=== PATIENT | female | born 1955 | race American Indian/Alaskan Native ===

== ENCOUNTER 2017-01-04 13:33 | Emergency (ER) | payer MEDICARE ==
[2017-01-04 14:49] LABS: Basophils % (Auto) 0.6 % (0.0-1.8); Eosinophils % (Auto) 1.5 % (0.0-4.3); Hematocrit 41.7 % (30.3-42.9); Hemoglobin 13.8 gm/dl (10.1-14.3); Mean Corpuscular HGB Conc 33 % (30-34); Mean Corpuscular Hemoglobin 29 pg (28-32); Mean Corpuscular Volume 86 fl (79-97); Platelet Count 358 K/mm3 (140-440); Red Blood Count 4.84 M/mm3 (3.65-5.03); Red Cell Distribution Width 13.8 % (13.2-15.2); White Blood Count 7.3 K/mm3 (4.5-11.0)
--- NOTE | 2017-01-04 14:56 | Emergency Department Report ---
HPI - General Chief Complaint: Abdominal Pain Time Seen by Provider: 01/04/17 14:43 - HPI HPI: Chief complaint: Abdominal pain, generalized weakness and dizziness. HPI: Patient is a 61-year-old female with a lifelong history of anxiety and episodic migraines presents today with acute onset of lower abdominal pain. Patient states she went and sat on the toilet and felt like she was given a pass out so she had her daughter bring her pillow and she lay on the floor. Patient states she had a bowel movement and then vomited and is now back to normal. Patient states she's no longer in pain. Patient states that on a pretty regular basis her legs give out on her and has been that way since she was 24. Patient has been worked up in the past for possible strokes and it was decided according to her that these were anxiety attacks. Patient did not pass out and nothing that she has now is new. No melena no hematuria Mode of arrival: [EMS] Source: [Patient] Began: Prior to admission Duration: See above Context: See above Quality: Sharp that has resolved Severity: 0 out of 10 Improved with: Nothing Worsened with: Nothing Associated signs and symptoms: See above ED Past Medical Hx - Past Medical History Previous Medical History?: Yes Hx Psychiatric Treatment: Yes (ANXIETY) Additional medical history: HYPOTHYROIDISM - Surgical History Past Surgical History?: Yes Additional Surgical History: hernia repair - Social History Smoking Status: Never Smoker Substance Use Type: None - Medications Home Medications: Home Medications Medication Instructions Recorded Confirmed Last Taken Type Ibuprofen [Motrin] 200 mg PO Q6H PRN 09/26/15 09/26/15 Unknown History LORazepam [Ativan] 1 mg PO Q12H PRN #7 tab 09/26/15 Unknown Rx amLODIPine [Norvasc] 5 mg PO DAILY #30 tab 09/26/15 Unknown Rx ED Review of Systems ROS: Stated complaint: ABD PAIN Other details as noted in HPI ROS Constitutional: No fever ENT: No uri symptoms Cardiovascular: No chest pain Respiratory: No sob or cough GI: No nausea vomiting or diarrhea : No dysuria frequency or urgency, Skin: No rash Neuro: No focal weakness or numbness Psych: No depression Juancarlos/lymph: No edema Physical Exam - Physical Exam Vital Signs: Vital Signs 01/04/17 13:48 Temperature 98.2 F Pulse Rate 68 Respiratory 12 Rate Blood Pressure 155/87 O2 Sat by Pulse 98 Oximetry Physical Exam: GENERAL: The patient is well-developed well-nourished . HEENT: Normocephalic. Atraumatic. Extraocular motions are intact. Patient has moist mucous membranes. NECK: Supple. No meningitic signs are noted. There is no adenopathy noted. CHEST/LUNGS: Clear to auscultation. There is no respiratory distress noted. HEART/CARDIOVASCULAR: Regular. There is no tachycardia. There is no gallop rub or murmur. ABDOMEN: Abdomen is soft, nontender. Patient has normal bowel sounds. There is no abdominal distention. SKIN: There is no rash. There is no edema. There is no diaphoresis. NEURO: The patient is awake, alert, and oriented. The patient is cooperative. The patient has no focal neurologic deficits. The patient has normal speech. MUSCULOSKELETAL: There is no tenderness or deformity. There is no limitation range of motion. There is no evidence of acute injury. ED Course Vital Signs 01/04/17 13:48 Temperature 98.2 F Pulse Rate 68 Respiratory 12 Rate Blood Pressure 155/87 O2 Sat by Pulse 98 Oximetry ED Medical Decision Making - Lab Data Result diagrams: 01/04/17 14:19 01/04/17 14:19 Laboratory Tests 01/04/17 01/04/17 14:19 14:19 Calcium 9.2 Troponin T < 0.010 Lipase 18 Urinalysis within normal limits. - EKG Data -: EKG Interpreted by De EKG shows normal: sinus rhythm Rate: normal (67) - EKG Data When compared to previous EKG there are: previous EKG unavailable Interpretation: LVH, other (left axis deviation) Critical care attestation.: If time is entered above; I have spent that time in minutes in the direct care of this critically ill patient, excluding procedure time. ED Disposition Clinical Impression: Generalized weakness, Resolved abdominal pain, Acute anxiety, Vasovagal episode Disposition: DISCHARGED TO HOME OR SELFCARE Is pt being admited?: No Does the pt Need Aspirin: No Instructions: Abdominal Pain (ED), Syncope (ED) Referrals: TAMI STINSON MD [Primary Care Provider] - 3-5 Days Time of Disposition: 16:40
[2017-01-04 15:16] LABS: Anion Gap 19 mmol/L; BUN/Creatinine Ratio 21.11; Blood Urea Nitrogen 19 mg/dL (7-17); Calcium 9.2 mg/dL (8.4-10.2); Carbon Dioxide 24 mmol/L (22-30); Chloride 102.5 mmol/L (98-107); Glucose 105 mg/dL (65-100); Sodium 141 mmol/L (137-145)
[2017-01-04 15:54] LABS: Bilirubin,Urine NEG (Negative); Blood,Urine NEG (Negative); Ketones,Urine NEG (Negative); Leukocyte Esterase,Urine NEG (Negative); Mucus,Urine FEW /HPF; Nitrite,Urine NEG (Negative); Protein,Urine <15 mg/dL mg/dL (Negative); Urobilinogen,Urine < 2.0 mg/dL (<2.0)
[2017-01-04 17:10] VITALS: BP 168/104
== END 2017-01-04 17:30 | disposition home or self-care (01) ==
LOC: ED 13:33
DX: R53.1 Weakness (principal); R41.9 Unspecified symptoms and signs involving cognitive functions and awareness; R55 Syncope and collapse; E03.9 Hypothyroidism, unspecified
CPT/HCPCS: 36415; 80048; 81001; 83690; 84484; 85025; 93005; 93010; 99284

== ENCOUNTER 2018-03-06 13:16 | Emergency (ER) | payer MEDICARE ==
[2018-03-06 13:30] VITALS: BP 149/109
[2018-03-06 14:01] LABS: Hematocrit 38.7 % (30.3-42.9); Mean Corpuscular HGB Conc 34 % (30-34); Mean Corpuscular Hemoglobin 29 pg (28-32); Mean Corpuscular Volume 86 fl (79-97); Platelet Count 362 K/mm3 (140-440); Red Blood Count 4.52 M/mm3 (3.65-5.03)
[2018-03-06 14:35] LABS: Alanine Aminotransferase 16 units/L (7-56); BUN/Creatinine Ratio 20; Blood Urea Nitrogen 16 mg/dL (7-17); Calcium 9.3 mg/dL (8.4-10.2); Hemolysis Index 3
== END 2018-03-06 21:00 | disposition left against medical advice (07) ==
LOC: ED 13:16
DX: F41.9 Anxiety disorder, unspecified (principal); Z88.0 Allergy status to penicillin; Z53.21 Procedure and treatment not carried out due to patient leaving prior to being seen by health care provider
CPT/HCPCS: 36415; 80053; 85027

== ENCOUNTER 2018-12-05 13:20 | Emergency (ER) | payer MEDICARE ==
[2018-12-05] MEDS ORDERED: NACL 0.9% 1000 ML 1,000 ML ONE (14:00)
[2018-12-05] MEDS ORDERED: NACL 0.9% 1000 ML 1,000 ML IV ONE (14:41)
--- NOTE | 2018-12-05 14:41 | Emergency Department Report ---
Blank Doc - Documentation Documentation: This is a 63 y.o. female that presents with abdominal pain and dizziness. She also complains of sore throat for 1 week. She also suffer from frequent falls. This initial assessment diagnostic orders/clinical plan/treatment(s) is/are subject to change based on patient's health status, clinical progression and re- assessment by fellow clinical providers in the ED. Further treatment and workup at subsequent clinical providers discretion. Patient/guardians urged not to elope from ED s their condition may be serious if not clinically assessed and managed. Initial orders include: 1- Labs Fast track for further evaluation.
[2018-12-05 15:03] LABS: Basophils # (Auto) 0.1 K/mm3 (0.0-0.1); Basophils % (Auto) 0.7 % (0.0-1.8); Eosinophils # (Auto) 0.2 K/mm3 (0.0-0.4); Eosinophils % (Auto) 2.1 % (0.0-4.3); Hematocrit 39.9 % (30.3-42.9); Hemoglobin 13.4 gm/dl (10.1-14.3); Lymphocytes # (Auto) 2.2 K/mm3 (1.2-5.4); Lymphocytes % (Auto) 18.4 % (13.4-35.0); Mean Corpuscular HGB Conc 34 % (30-34); Mean Corpuscular Volume 85 fl (79-97); Monocytes # (Auto) 0.8 K/mm3 (0.0-0.8); Monocytes % (Auto) 6.6 % (0.0-7.3); Platelet Count 436 K/mm3 (140-440); Red Blood Count 4.69 M/mm3 (3.65-5.03); Red Cell Distribution Width 13.7 % (13.2-15.2)
[2018-12-05 15:24] LABS: Alanine Aminotransferase 21 units/L (7-56); Albumin 3.7 g/dL (3.9-5); BUN/Creatinine Ratio 16; Blood Urea Nitrogen 16 mg/dL (7-17); Calcium 9.2 mg/dL (8.4-10.2); Hemolysis Index 5
[2018-12-05 16:49] LABS: Bacteria,Urine 2+ /HPF (Negative); Bilirubin,Urine NEG (Negative); Blood,Urine NEG (Negative); Color,Urine Yellow (Yellow); Hyaline Casts,Urine 2 /LPF; Mucus,Urine 3+ /HPF; Protein,Urine <15 mg/dL mg/dL (Negative); Sperm,Urine FEW /HPF (NP)
--- NOTE | 2018-12-05 17:42 | Emergency Department Report ---
- General Chief Complaint: Upper Respiratory Infection Stated Complaint: ABD PAIN/RUNNY NOSE/FALL Time Seen by Provider: 12/05/18 14:35 Source: patient Mode of arrival: Ambulatory Limitations: No Limitations - History of Present Illness Initial Comments: 63-year-old female presents to ED with complaint of cough, sneezing, sore throat 1 week. Patient reports subjective fever and chills. Patient reports lower abdominal pain with pressure discoloration of her urine. Patient also reports multiple falls as she has been suffering from for 40 years. She states she has a history of balance problems. She denies hitting her head. Just reports dizziness. Patient states she had a bruise underneath her right arm from a fall from 2 weeks ago, however it is now improved. Patient states she is able to ambulate. MD Complaint: fever, cough, sore throat -: week(s) (1) Severity: moderate Consistency: constant Improves With: nothing Worsens With: nothing Associated Symptoms: fever, chills, cough, abdominal pain - Related Data Home Medications Medication Instructions Recorded Confirmed Last Taken Ibuprofen [Motrin] 200 mg PO Q6H PRN 09/26/15 09/26/15 Unknown Previous Rx's Medication Instructions Recorded Last Taken Type LORazepam [Ativan] 1 mg PO Q12H PRN #7 tab 09/26/15 Unknown Rx amLODIPine [Norvasc] 5 mg PO DAILY #30 tab 09/26/15 Unknown Rx Azithromycin [Zithromax Tri-Yosi] 500 mg PO QDAY #3 tablet 12/05/18 Unknown Rx Allergies Allergy/AdvReac Type Severity Reaction Status Date / Time iodine Allergy Unknown Verified 09/26/15 21:59 Penicillins AdvReac Unknown Verified 01/12/15 04:48 ED Review of Systems ROS: Stated complaint: ABD PAIN/RUNNY NOSE/FALL Other details as noted in HPI Comment: All other systems reviewed and negative Constitutional: chills, fever ENT: throat pain Respiratory: cough Gastrointestinal: abdominal pain Genitourinary: other (reports discolored urine) Neurological: vertigo ED Past Medical Hx - Past Medical History Previous Medical History?: Yes Hx Hypertension: Yes Hx Arthritis: Yes Hx Psychiatric Treatment: Yes (ANXIETY) Additional medical history: HYPOTHYROIDISM - Surgical History Past Surgical History?: Yes Additional Surgical History: hernia repair - Social History Smoking Status: Never Smoker - Medications Home Medications: Home Medications Medication Instructions Recorded Confirmed Last Taken Type Ibuprofen [Motrin] 200 mg PO Q6H PRN 09/26/15 09/26/15 Unknown History LORazepam [Ativan] 1 mg PO Q12H PRN #7 tab 09/26/15 Unknown Rx amLODIPine [Norvasc] 5 mg PO DAILY #30 tab 09/26/15 Unknown Rx Azithromycin [Zithromax Tri-Yosi] 500 mg PO QDAY #3 tablet 12/05/18 Unknown Rx ED Physical Exam - General Limitations: No Limitations General appearance: alert, in no apparent distress - Head Head exam: Present: atraumatic, normocephalic - Eye Eye exam: Present: normal appearance - ENT ENT exam: Present: mucous membranes moist - Neck Neck exam: Present: normal inspection - Respiratory Respiratory exam: Present: normal lung sounds bilaterally. Absent: respiratory distress - Cardiovascular Cardiovascular Exam: Present: normal rhythm, tachycardia - GI/Abdominal GI/Abdominal exam: Present: soft. Absent: distended, tenderness - Extremities Exam Extremities exam: Present: normal inspection - Neurological Exam Neurological exam: Present: alert, oriented X3, CN II-XII intact, normal gait. Absent: motor sensory deficit - Psychiatric Psychiatric exam: Present: normal affect, normal mood - Skin Skin exam: Present: warm, dry, intact, normal color ED Course Vital Signs 12/05/18 12/05/18 14:37 19:01 Temperature 98.9 F 98.2 F Pulse Rate 112 H 88 Respiratory 18 18 Rate Blood Pressure 167/115 Blood Pressure 167/115 142/88 [Right] O2 Sat by Pulse 95 100 Oximetry ED Medical Decision Making - Lab Data Result diagrams: 12/05/18 14:47 12/05/18 14:47 - Radiology Data Radiology results: pending, image reviewed interpreted by me: CXR: negative for any acute findings * PACS system down; no official interpretation at this time - Differential Diagnosis strep throat, UTI, dehydration Critical care attestation.: If time is entered above; I have spent that time in minutes in the direct care of this critically ill patient, excluding procedure time. ED Disposition Clinical Impression: Strep pharyngitis, Dehydration Disposition: DC-01 TO HOME OR SELFCARE Is pt being admited?: No Condition: Stable Instructions: Dehydration (ED), Strep Throat (ED) Prescriptions: Azithromycin [Zithromax Tri-Yosi] 500 mg PO QDAY #3 tablet Referrals: PRIMARY CARE, [Referring] - 3-5 Days Time of Disposition: 18:26
[2018-12-05 19:02] VITALS: BP 142/88
--- NOTE | 2018-12-07 15:56 | XRay Report ---
FINAL REPORT EXAM: XR CHEST 1V AP HISTORY: cough TECHNIQUE: AP portable view of the chest PRIORS: None. FINDINGS: Lines, tubes, and devices: N/A Lungs and pleura: Trachea is normal in position. Lungs are clear of infiltrate, pleural effusion, vas cular congestion, or pneumothorax. Cardiomediastinal silhouette: Cardiac and mediastinal silhouettes are unremarkable. The aorta is tort uous. Other: Bony structures are intact. IMPRESSION: No acute cardiopulmonary process seen.
== END 2018-12-05 18:50 | disposition home or self-care (01) ==
LOC: ED 13:20
DX: J02.0 Streptococcal pharyngitis (principal); E86.0 Dehydration; I10 Essential (primary) hypertension; M19.90 Unspecified osteoarthritis, unspecified site; F41.9 Anxiety disorder, unspecified; E03.9 Hypothyroidism, unspecified
CPT/HCPCS: 36415; 71045; 80053; 81001; 85025; 87430; 96360; 99284; J7030

== ENCOUNTER 2018-12-15 08:17 | Inpatient (IN) | payer MEDICARE ==
--- NOTE | 2018-12-15 10:09 | XRay Report ---
AP CHEST: HISTORY: chest pain AP view of the chest demonstrates a normal mediastinal and cardiac contour with clear lungs and normal bony and soft tissue structures. IMPRESSION: Unremarkable AP chest. No significant change since 12/05/18.
--- NOTE | 2018-12-15 10:12 | Cat Scan Report ---
CT HEAD WITHOUT CONTRAST: HISTORY: Aphasia. TECHNIQUE: Sequential 2.5mm CT images. COMPARISON: 09/26/15. FINDINGS: Cerebral Parenchyma: Mild chronic small vessel disease is suspected in the white matter bilaterally. No evidence for acute or chronic infarct.. Cerebellum: Within normal limits. Brainstem: Within normal limits. Ventricles: Normal. Sella: Normal. Extra-axial spaces: Normal. Basal Cisterns: Normal. Intracranial Hemorrhage: None. Midline Shift: None. Calvarium: Normal. Sinuses: Normal. Mastoid Air Cells: Normal. Visualized Orbits: Normal. IMPRESSION: Mild nonspecific chronic white matter changes. No acute intracranial process is identified. No significant change since 2014.
[2018-12-15 11:24] LABS: Basophils % (Auto) 0.3 % (0.0-1.8); Eosinophils # (Auto) 0.1 K/mm3 (0.0-0.4); Eosinophils % (Auto) 2.8 % (0.0-4.3); Hemoglobin 14.1 gm/dl (10.1-14.3); Lymphocytes # (Auto) 1.9 K/mm3 (1.2-5.4); Lymphocytes % (Auto) 38.4 % (13.4-35.0); Mean Corpuscular HGB Conc 35 % (30-34); Mean Corpuscular Volume 85 fl (79-97); Monocytes # (Auto) 0.3 K/mm3 (0.0-0.8); Monocytes % (Auto) 5.8 % (0.0-7.3); Platelet Count 460 K/mm3 (140-440); Red Blood Count 4.81 M/mm3 (3.65-5.03); Red Cell Distribution Width 13.8 % (13.2-15.2)
[2018-12-15 11:28] LABS: INR 0.96 (0.87-1.13)
[2018-12-15 11:29] LABS: Partial Thromboplastin Time 31.6 Sec. (24.2-36.6)
[2018-12-15 11:46] LABS: Alanine Aminotransferase 13 units/L (7-56); Albumin 4.1 g/dL (3.9-5); BUN/Creatinine Ratio 13; Blood Urea Nitrogen 10 mg/dL (7-17); Calcium 9.3 mg/dL (8.4-10.2); Hemolysis Index 4
[2018-12-15] MEDS ORDERED: BABY ASPIRIN PO ONE (12:52)
--- NOTE | 2018-12-15 12:55 | Emergency Department Report ---
ED General Adult HPI - General Chief complaint: Neuro Symptoms/Deficit Stated complaint: HBP/EVALUATION Time Seen by Provider: 12/15/18 09:21 Source: patient, EMS Mode of arrival: Stretcher Limitations: No Limitations - History of Present Illness Initial comments: The patient presents to [facility] with a chief complaint of aphasia. Patient states this morning upon awakening she was not able to speak. Patient states that she was trying to communicate with her daughter but the words would not come out. Shortly after that she has some slurred speech that resolved. Patient also complains of left-sided chest pain without radiation for the last day as well. Patient denies shortness breath, abdominal pain, headache. -: Sudden Severity scale (0 -10): 4 Consistency: constant Improves with: none Worsens with: none Associated Symptoms: denies other symptoms Treatments Prior to Arrival: none - Related Data Home Medications Medication Instructions Recorded Confirmed Last Taken RX: No Known Home Medications [No 12/15/18 12/15/18 Unknown Reported Home Medications] Allergies Allergy/AdvReac Type Severity Reaction Status Date / Time iodine Allergy Unknown Verified 09/26/15 21:59 Penicillins AdvReac Unknown Verified 01/12/15 04:48 ED Review of Systems ROS: Stated complaint: HBP/EVALUATION Other details as noted in HPI Comment: All other systems reviewed and negative Constitutional: denies: chills, fever Eyes: denies: eye pain, eye discharge, vision change ENT: denies: ear pain, throat pain Respiratory: denies: cough, shortness of breath, wheezing Cardiovascular: denies: chest pain, palpitations Endocrine: no symptoms reported Gastrointestinal: denies: abdominal pain, nausea, diarrhea Genitourinary: denies: urgency, dysuria, discharge Musculoskeletal: denies: back pain, joint swelling, arthralgia Skin: denies: rash, lesions Neurological: denies: headache, weakness, paresthesias Psychiatric: denies: anxiety, depression Hematological/Lymphatic: denies: easy bleeding, easy bruising ED Past Medical Hx - Past Medical History Previous Medical History?: Yes Hx Hypertension: Yes Hx Arthritis: Yes Hx Psychiatric Treatment: Yes (ANXIETY) Additional medical history: HYPOTHYROIDISM - Surgical History Past Surgical History?: Yes Additional Surgical History: hernia repair - Social History Smoking Status: Never Smoker Substance Use Type: Alcohol - Medications Home Medications: Home Medications Medication Instructions Recorded Confirmed Last Taken Type RX: No Known Home Medications [No 12/15/18 12/15/18 Unknown History Reported Home Medications] ED Physical Exam - General Limitations: No Limitations General appearance: alert, in no apparent distress - Head Head exam: Present: atraumatic, normocephalic - Eye Eye exam: Present: normal appearance, PERRL, EOMI - ENT ENT exam: Present: mucous membranes moist - Neck Neck exam: Present: normal inspection - Respiratory Respiratory exam: Present: normal lung sounds bilaterally. Absent: respiratory distress, wheezes, rales, rhonchi - Cardiovascular Cardiovascular Exam: Present: regular rate, normal rhythm. Absent: systolic murmur, diastolic murmur, rubs, gallop - GI/Abdominal GI/Abdominal exam: Present: soft, normal bowel sounds. Absent: distended, tenderness - Extremities Exam Extremities exam: Present: normal inspection - Back Exam Back exam: Present: normal inspection - Neurological Exam Neurological exam: Present: alert, oriented X3, CN II-XII intact. Absent: motor sensory deficit - Psychiatric Psychiatric exam: Present: normal affect, normal mood - Skin Skin exam: Present: warm, dry, intact, normal color. Absent: rash ED Course Vital Signs 12/15/18 12/15/18 12/15/18 08:43 12:31 14:54 Temperature 98.6 F 97.9 F Pulse Rate 74 62 65 Respiratory 20 14 19 Rate Blood Pressure 201/127 Blood Pressure 161/109 143/85 [Left] O2 Sat by Pulse 100 98 96 Oximetry ED Medical Decision Making - Lab Data Result diagrams: 12/15/18 11:02 12/15/18 11:02 Lab Results 12/15/18 12/15/18 12/15/18 Range/Units 11:02 11:02 11:02 WBC 4.9 (4.5-11.0) K/mm3 RBC 4.81 (3.65-5.03) M/mm3 Hgb 14.1 (10.1-14.3) gm/dl Hct 41.0 (30.3-42.9) % MCV 85 (79-97) fl MCH 29 (28-32) pg MCHC 35 H (30-34) % RDW 13.8 (13.2-15.2) % Plt Count 460 H (140-440) K/mm3 Lymph % (Auto) 38.4 H (13.4-35.0) % Brooks % (Auto) 5.8 (0.0-7.3) % Eos % (Auto) 2.8 (0.0-4.3) % Baso % (Auto) 0.3 (0.0-1.8) % Lymph # 1.9 (1.2-5.4) K/mm3 Brooks # 0.3 (0.0-0.8) K/mm3 Eos # 0.1 (0.0-0.4) K/mm3 Baso # 0.0 (0.0-0.1) K/mm3 Seg Neutrophils % 52.7 (40.0-70.0) % Seg Neutrophils # 2.6 (1.8-7.7) K/mm3 PT 13.4 (12.2-14.9) Sec. INR 0.96 (0.87-1.13) APTT 31.6 (24.2-36.6) Sec. Sodium 143 (137-145) mmol/L Potassium 3.7 (3.6-5.0) mmol/L Chloride 103.5 (98-107) mmol/L Carbon Dioxide 27 (22-30) mmol/L Anion Gap 16 mmol/L BUN 10 (7-17) mg/dL Creatinine 0.8 (0.7-1.2) mg/dL Estimated GFR > 60 ml/min BUN/Creatinine Ratio 13 % Glucose 90 (65-100) mg/dL Calcium 9.3 (8.4-10.2) mg/dL Total Bilirubin 0.50 (0.1-1.2) mg/dL AST 17 (5-40) units/L ALT 13 (7-56) units/L Alkaline Phosphatase 51 (35-129) units/L Troponin T < 0.010 (0.00-0.029) ng/mL NT-Pro-B Natriuret Pep 49.03 (0-900) pg/mL Total Protein 7.9 (6.3-8.2) g/dL Albumin 4.1 (3.9-5) g/dL Albumin/Globulin Ratio 1.1 % 12/15/18 Range/Units 11:02 WBC (4.5-11.0) K/mm3 RBC (3.65-5.03) M/mm3 Hgb (10.1-14.3) gm/dl Hct (30.3-42.9) % MCV (79-97) fl MCH (28-32) pg MCHC (30-34) % RDW (13.2-15.2) % Plt Count (140-440) K/mm3 Lymph % (Auto) (13.4-35.0) % Brooks % (Auto) (0.0-7.3) % Eos % (Auto) (0.0-4.3) % Baso % (Auto) (0.0-1.8) % Lymph # (1.2-5.4) K/mm3 Brooks # (0.0-0.8) K/mm3 Eos # (0.0-0.4) K/mm3 Baso # (0.0-0.1) K/mm3 Seg Neutrophils % (40.0-70.0) % Seg Neutrophils # (1.8-7.7) K/mm3 PT (12.2-14.9) Sec. INR (0.87-1.13) APTT (24.2-36.6) Sec. Sodium (137-145) mmol/L Potassium (3.6-5.0) mmol/L Chloride (98-107) mmol/L Carbon Dioxide (22-30) mmol/L Anion Gap mmol/L BUN (7-17) mg/dL Creatinine (0.7-1.2) mg/dL Estimated GFR ml/min BUN/Creatinine Ratio % Glucose (65-100) mg/dL Calcium (8.4-10.2) mg/dL Total Bilirubin (0.1-1.2) mg/dL AST (5-40) units/L ALT (7-56) units/L Alkaline Phosphatase (35-129) units/L Troponin T < 0.010 (0.00-0.029) ng/mL NT-Pro-B Natriuret Pep (0-900) pg/mL Total Protein (6.3-8.2) g/dL Albumin (3.9-5) g/dL Albumin/Globulin Ratio % - EKG Data -: EKG Interpreted by Me EKG shows normal: sinus rhythm Rate: normal - Radiology Data Radiology results: report reviewed - Medical Decision Making Discussed results with the patient Critical care attestation.: If time is entered above; I have spent that time in minutes in the direct care of this critically ill patient, excluding procedure time. ED Disposition Clinical Impression: Aphasia, Chest pain Disposition: DC-09 OP ADMIT IP TO THIS HOSP Is pt being admited?: Yes Does the pt Need Aspirin: No Condition: Fair Instructions: Chest Pain (ED) Referrals: TAMI STINSON MD [Primary Care Provider] - 3-5 Days - Assessment Assessment Interval: Baseline - Level of Consciousness 1a. Level of Consciousness: alert/keenly responsive - LOC Questions 1b. LOC Questions: answers both correctly - LOC Command 1c. LOC Commands: performs tasks correctly - Best Gaze 2. Best Gaze: normal - Visual 3. Visual: no visual loss - Facial Palsy 4. Facial Palsy: normal symmetrical movement - Motor Arm 5b. Motor Arm Right: no drift 5a. Motor Arm Left: no drift - Motor Leg 6b. Motor Leg Right: no drift 6a. Motor Leg Left: no drift - Limb Ataxia 7. Limb Ataxia: absent - Sensory 8. Sensory: normal - Best Language 9. Best Language: no aphasia - Dysarthria 10. Dysarthria: normal - Extinction and Inattention 11. Extinction/Inattention: no abnormality - Scoring Total Score: 0 Stroke Severity: No Stroke Symptoms
[2018-12-15] MEDS ORDERED: NORVASC PO ONE (14:28)
[2018-12-15] MEDS ORDERED: MILK OF MAGNESIA PO PRN (15:33)
[2018-12-15] MEDS ORDERED: NITROSTAT SL PRN (15:33)
[2018-12-15] MEDS ORDERED: MORPHINE IV PRN (15:33)
[2018-12-15] MEDS ORDERED: SODIUM CHLORIDE FLUSH SYRINGE 10 ML IV PRN ×2 (15:33)
[2018-12-15] MEDS ORDERED: ZOFRAN IV PRN (15:33)
[2018-12-15] MEDS ORDERED: DULCOLAX PR PRN (15:33)
[2018-12-15] MEDS ORDERED: REGLAN PO PRN (15:33)
[2018-12-15] MEDS ORDERED: PHENERGAN PR PRN (15:33)
[2018-12-15] MEDS ORDERED: TYLENOL PO PRN (15:33)
--- NOTE | 2018-12-15 15:38 | History and Physical Report ---
History of Present Illness Chief complaint: Slurred speech, and chest pain History of present illness: 63 YO Female with Anxiety, HTN,OA, Hypothyroidism, Obesity presents to ED for evaluation. Pt states that she was in her usual state of health at bedtime around 2000 hrs. Pt awoke from sleep this morning and experienced slurred speech and weakness resulting in multiple falls. Pt also reports pain in her chest. Pt states that pain is 4/10, substernal, constant, nonradiating, not worsened with exertion, not relieved with rest. Pt denies shortness of breath, Abdominal pain, BRBPR, Unintentional weight loss, night sweats, productive cough, or recent ill contacts. EMS notified, and upon arrival the patient was found to have neurologic deficit. A code stroke was called, and the patient was transported to [facility] for further care and evaluation. Pt seen and evaluated in found to have suspected CVA, as well as chest pain. Pt admitted to telemetry and initiated on CVA protocol, and well as chest pain protocol. Neurology consulted in ED. Cardiology consulted in ED. Past History Past Medical History: arthritis, hypertension, hypothyroidism, other (Anxiety) Past Surgical History: No surgical history Social history: . denies: smoking, alcohol abuse, prescription drug abuse Family history: hypertension Medications and Allergies Allergies Allergy/AdvReac Type Severity Reaction Status Date / Time iodine Allergy Unknown Verified 09/26/15 21:59 Penicillins AdvReac Unknown Verified 01/12/15 04:48 Home Medications Medication Instructions Recorded Confirmed Last Taken Type No Known Home Medications [No 12/15/18 12/15/18 Unknown History Reported Home Medications] Review of Systems Constitutional: no weight loss, no weight gain, no fever, no chills Ears, nose, mouth and throat: no ear pain, no ear discharge, no tinnitis, no decreased hearing, no nose pain Breasts: no change in shape, no swelling, no mass Cardiovascular: chest pain, no edema, no syncope, no lightheadedness, no shortness of breath Respiratory: no cough, no cough with sputum, no excessive sputum Genitourinary Female: no pelvic pain, no flank pain, no dysuria Rectal: no pain, no incontinence, no bleeding Musculoskeletal: no neck stiffness, no neck pain, no shooting arm pain, no arm numbness/tingling, no low back pain Integumentary: no rash, no pruritis, no redness, no sores, no wounds Neurological: no paralysis, no weakness, no parathesias, no numbness, no tingling, no seizures Psychiatric: no anxiety, no memory loss, no change in sleep habits, no sleep disturbances, no insomnia Endocrine: no cold intolerance, no heat intolerance, no polyphagia, no excessive thirst, no polydipsia, no polyuria Hematologic/Lymphatic: no easy bruising, no easy bleeding, no lymphadenopathy, no lymphedema Allergic/Immunologic: no urticaria, no allergic rhinitis, no wheezing, no persistent infections, no anaphylaxis, no angioedema Exam - Constitutional Vitals: Temp Pulse Resp BP Pulse Ox 97.9 F 65 19 143/85 96 12/15/18 12:31 12/15/18 14:54 12/15/18 14:54 12/15/18 14:54 12/15/18 14:54 General appearance: Present: mild distress, obese - EENT Eyes: Present: PERRL ENT: hearing intact, clear oral mucosa - Neck Neck: Present: supple, normal ROM - Respiratory Respiratory effort: normal Respiratory: bilateral: CTA - Cardiovascular Heart Sounds: Present: S1 & S2. Absent: rub, click - Extremities Extremities: pulses symmetrical, No edema Peripheral Pulses: within normal limits - Abdominal General gastrointestinal: Present: soft, non-tender, non-distended, normal bowel sounds Female genitourinary: Present: normal - Integumentary Integumentary: Present: clear, warm, dry - Musculoskeletal Musculoskeletal: generalized weakness - Psychiatric Psychiatric: appropriate mood/affect, intact judgment & insight - Neurologic Neurologic: no focal deficits, no gait normal Results - Labs CBC & Chem 7: 12/15/18 11:02 12/15/18 11:02 Labs: Abnormal lab results 12/15/18 Range/Units 11:02 MCHC 35 H (30-34) % Plt Count 460 H (140-440) K/mm3 Lymph % (Auto) 38.4 H (13.4-35.0) % Assessment and Plan - Patient Problems (1) Chest pain Current Visit: Yes Status: Acute Qualifiers: Chest pain type: other chest pain Qualified Code(s): R07.89 - Other chest pain; R07.8 - Other chest pain Plan to address problem: Admit to Telemetry: Chest Pain Protocol: serial cardiac enzymes, ekg, telemetry, stress test, morphine, supplemental oxygen, nitro, aspirin, echo, cardiology consulted in ED. (2) CVA (cerebral vascular accident) Current Visit: Yes Status: Suspected Qualifiers: Laterality of affected vessel: unspecified Plan to address problem: Admit to telemetry: CVA Protocol: CT Head, MRI Brain, MRA Brain, Echo, Carotid Doppler, Antiplatelet therapy, PT/OT/ Speech Therapy, lipid panel. (3) HTN (hypertension) Current Visit: Yes Status: Acute Qualifiers: Hypertension type: essential hypertension Qualified Code(s): I10 - Essential (primary) hypertension Plan to address problem: Monitor BP q shift, permissive hypertension overnight. (4) Hypothyroid Current Visit: Yes Status: Acute Plan to address problem: Thyroid panel, (5) DVT prophylaxis Current Visit: Yes Status: Acute Plan to address problem: SCD to BLE while in bed.
[2018-12-15 16:25] LABS: Chol/HDL Ratio 3.9 %
[2018-12-15] MEDS ORDERED: ATIVAN ONE (17:30)
[2018-12-15] MEDS ORDERED: ATIVAN IV ONE (17:30)
--- NOTE | 2018-12-15 18:05 | Consultation ---
History of Present Illness Consult date: 12/15/18 Chief complaint: chest pain, difficulty getting words out Past History Past Medical History: hypertension, other (anxiety) Past Surgical History: No surgical history Social history: no significant social history Family history: hypertension Medications and Allergies Allergies Allergy/AdvReac Type Severity Reaction Status Date / Time iodine Allergy Unknown Verified 09/26/15 21:59 Penicillins AdvReac Unknown Verified 01/12/15 04:48 Home Medications Medication Instructions Recorded Confirmed Last Taken Type No Known Home Medications [No 12/15/18 12/15/18 Unknown History Reported Home Medications] Active Meds: Active Medications Acetaminophen (Tylenol) 650 mg PO Q4H PRN PRN Reason: Pain, Mild (1-3) Aspirin (Aspirin) 325 mg PO QDAY LAYLA Atorvastatin Calcium (Lipitor) 40 mg PO QHS LAYLA Bisacodyl (Dulcolax) 10 mg [place] QDAY PRN PRN Reason: Constipation Magnesium Hydroxide (Milk Of Magnesia) 30 ml PO Q4H PRN PRN Reason: Constipation Metoclopramide HCl (Reglan) 10 mg PO Q6H PRN PRN Reason: Nausea And Vomiting Morphine Sulfate (Morphine) 2 mg IV Q4H PRN PRN Reason: Pain, Moderate (4-6) Nitroglycerin (Nitrostat) 0.4 mg SL Q5M PRN PRN Reason: Chest Pain Ondansetron HCl (Zofran) 4 mg IV Q8H PRN PRN Reason: Nausea And Vomiting Promethazine HCl (Phenergan) 25 mg [place] Q6H PRN PRN Reason: Nausea And Vomiting Sodium Chloride (Sodium Chloride Flush Syringe 10 Ml) 10 ml IV PRN PRN PRN Reason: LINE FLUSH Sodium Chloride (Sodium Chloride Flush Syringe 10 Ml) 10 ml IV PRN PRN PRN Reason: LINE FLUSH Review of Systems Neurological: parathesias Psychiatric: anxiety Physical Examination - Vital Signs Vital Signs: Vital Signs Temp Pulse Resp BP Pulse Ox 98.6 F 74 20 201/127 100 12/15/18 08:43 12/15/18 08:43 12/15/18 08:43 12/15/18 08:43 12/15/18 08:43 - Constitutional General appearance: comfortable - EENT EENT: Present: mucous membranes dry - Respiratory Respiratory: Present: lungs clear - Cardiovascular Cardiovascular: Present: regular rate - Gastrointestinal Gastrointestinal: Present: normoactive bowel sounds - Neurologic Cranial nerve examination: PERRL, EOMI, V1/V2/V3 grossly intact, face symmetric, tongue midline Motor examination - right side: 5: biceps, triceps, wrist flexion, wrist extension, channel man, hip flexors, knee extensors, dorsiflexion, toe extension (EHL), plantarflexion Motor examination - left side: 55: biceps, triceps, wrist flexion, wrist extension, channel man, hip flexors, knee extensors, dorsiflexion, toe extension (EHL), plantarflexion Detailed sensory examination: intact Reflexes: 1+: ankle, bicep, knee, tricep - Assessment Assessment Interval: Baseline - Level of Consciousness 1a. Level of Consciousness: alert/keenly responsive - LOC Questions 1b. LOC Questions: answers both correctly - LOC Command 1c. LOC Commands: performs tasks correctly - Best Gaze 2. Best Gaze: normal - Visual 3. Visual: no visual loss - Facial Palsy 4. Facial Palsy: normal symmetrical movement - Motor Arm 5b. Motor Arm Right: no drift - Motor Leg 6b. Motor Leg Right: no drift 6a. Motor Leg Left: no drift - Limb Ataxia 7. Limb Ataxia: absent - Sensory 8. Sensory: normal - Best Language 9. Best Language: no aphasia - Dysarthria 10. Dysarthria: normal - Extinction and Inattention 11. Extinction/Inattention: no abnormality Results - Laboratory Findings CBC and BMP: 12/15/18 11:02 12/15/18 11:02 Abnormal Lab Findings: Abnormal Labs 12/15/18 12/15/18 11:02 11:02 MCHC 35 H Plt Count 460 H Lymph % (Auto) 38.4 H Triglycerides 161 H Assessment and Plan This is a 63 YO F with multiple vague complaints, complains of having trouble getting her words out but was able to write fluently(showed me what she wrote), currently at baseline. Pt notes a history of anxiety not being treated currently. REcommend: Agree with MRI Brain, however, ED nurse says pt is currently refusing, even with Ativan Would go ahead and lower BP as per protocol, high on my arrival Pt says she does not take aspirin, would add and check lipids and A1C, would risk stratify since she is here although I DO NOT think her symptoms are consistent with stroke, sound more like anxiety Continue care for all medical issues as you are doing POC discussed with pt at bedside. Please call with questions.
--- NOTE | 2018-12-15 18:32 | Vascular Lab Report ---
FINAL REPORT EXAM: VL CAROTID DUPLEX BILAT HISTORY: stroke TECHNIQUE: Grayscale, color flow and Doppler waveform imaging of the cervical carotid and vertebral arteries was performed. Comparison: None FINDINGS: There is demonstration of antegrade flow in the cervical carotid and vertebral arteries bilaterally. The internal carotid arteries are tortuous bilaterally. There is no clear demonstration of plaque formation on the grayscale images provided. Peak systolic velocity in the right internal carotid artery is 59 centimeters/second and in the left internal carotid artery is 43 centimeters/second. Peak systolic ICA/CCA ratio on the right is 1.0 and on the left is 0.6 IMPRESSION: 1. No definite ultrasound evidence of stenosis in the cervical carotid arteries bilaterally. 2. Tortuosity of the internal carotid arteries bilaterally. If further imaging is required, CT angiogram neck or MR angiogram neck may be helpful.
[2018-12-15 20:38] LABS: Free T4 (Free Thyroxine) 0.83 ng/dL (0.76-1.46)
[2018-12-16] MEDS ORDERED: LEXISCAN IV ONE ×2 (08:49)
--- NOTE | 2018-12-16 10:43 | Event Note ---
Date: 12/16/18 Slurred speech and weakness resulting in multiple falls - reason for admission Atypical chest pain MPI this admission showing no ischemia, LVEF 57% Normal CXR Negative troponin ECG showing LVH, no ischemic findings Systemic Hypertension Recommendations: No further cardiac work-up is needed for atypical chest pain and low risk MPI Blood pressure control Plan per neurology and primary team
[2018-12-16] MEDS ORDERED: APRESOLINE IV PRN (14:07)
--- NOTE | 2018-12-16 14:08 | Progress Note ---
Assessment and Plan Assessment and plan: Chest pain. Stress test done today, normal No further cardiac workup as per cardiology Slurred speech, resolved. Etiology unclear. Patient could not do MRI because of claustrophobia/anxiety Hypertensive urgency. BP elevated Give [facility] Full code status History Interval history: Chest pain Speech difficulty Hospitalist Physical - Physical exam Narrative exam: GEN: Not in acute distress,obese HEENT: Normocephalic, atraumatic, Neck: supple, No JVD Lungs: Clear to auscultation bilat, no wheeze Heart:S1 and S2 regular, no murmurs, rubs or gallop, Abd:soft, non tender, non distended, normal bowel sounds Ext: No edema, no clubbing or cyanosis Neuro:Awake,alert,oriented x 3, moves all ext, no focal neurological signs - Constitutional Vitals: Temp Pulse Resp BP Pulse Ox 98.0 F 71 16 148/114 99 12/16/18 08:03 12/16/18 08:03 12/16/18 08:03 12/16/18 09:10 12/16/18 08:03 Results - Labs CBC & Chem 7: 12/15/18 11:02 12/15/18 11:02 Labs: Laboratory Last Values WBC 4.9 K/mm3 (4.5-11.0) 12/15/18 11:02 RBC 4.81 M/mm3 (3.65-5.03) 12/15/18 11:02 Hgb 14.1 gm/dl (10.1-14.3) 12/15/18 11:02 Hct 41.0 % (30.3-42.9) 12/15/18 11:02 MCV 85 fl (79-97) 12/15/18 11:02 MCH 29 pg (28-32) 12/15/18 11:02 MCHC 35 % (30-34) H 12/15/18 11:02 RDW 13.8 % (13.2-15.2) 12/15/18 11:02 Plt Count 460 K/mm3 (140-440) H 12/15/18 11:02 Lymph % (Auto) 38.4 % (13.4-35.0) H 12/15/18 11:02 [place] % (Auto) 5.8 % (0.0-7.3) 12/15/18 11:02 Eos % (Auto) 2.8 % (0.0-4.3) 12/15/18 11:02 Baso % (Auto) 0.3 % (0.0-1.8) 12/15/18 11:02 Lymph # 1.9 K/mm3 (1.2-5.4) 12/15/18 11:02 [place] # 0.3 K/mm3 (0.0-0.8) 12/15/18 11:02 Eos # 0.1 K/mm3 (0.0-0.4) 12/15/18 11:02 Baso # 0.0 K/mm3 (0.0-0.1) 12/15/18 11:02 Seg Neutrophils % 52.7 % (40.0-70.0) 12/15/18 11:02 Seg Neutrophils # 2.6 K/mm3 (1.8-7.7) 12/15/18 11:02 PT 13.4 Sec. (12.2-14.9) 12/15/18 11:02 INR 0.96 (0.87-1.13) 12/15/18 11:02 APTT 31.6 Sec. (24.2-36.6) 12/15/18 11:02 Sodium 143 mmol/L (137-145) 12/15/18 11:02 Potassium 3.7 mmol/L (3.6-5.0) 12/15/18 11:02 Chloride 103.5 mmol/L (98-107) 12/15/18 11:02 Carbon Dioxide 27 mmol/L (22-30) 12/15/18 11:02 Anion Gap 16 mmol/L 12/15/18 11:02 BUN 10 mg/dL (7-17) 12/15/18 11:02 Creatinine 0.8 mg/dL (0.7-1.2) 12/15/18 11:02 Estimated GFR > 60 ml/min 12/15/18 11:02 BUN/Creatinine Ratio 13 % 12/15/18 11:02 Glucose 90 mg/dL (65-100) 12/15/18 11:02 Calcium 9.3 mg/dL (8.4-10.2) 12/15/18 11:02 Total Bilirubin 0.50 mg/dL (0.1-1.2) 12/15/18 11:02 AST 17 units/L (5-40) 12/15/18 11:02 ALT 13 units/L (7-56) 12/15/18 11:02 Alkaline Phosphatase 51 units/L (35-129) 12/15/18 11:02 Troponin T < 0.010 ng/mL (0.00-0.029) 12/15/18 21:07 NT-Pro-B Natriuret Pep 49.03 pg/mL (0-900) 12/15/18 11:02 Total Protein 7.9 g/dL (6.3-8.2) 12/15/18 11:02 Albumin 4.1 g/dL (3.9-5) 12/15/18 11:02 Albumin/Globulin Ratio 1.1 % 12/15/18 11:02 Triglycerides 161 mg/dL (2-149) H 12/15/18 11:02 Cholesterol 168 mg/dL (50-199) 12/15/18 11:02 LDL Cholesterol Direct 108 mg/dL (50-130) 12/15/18 11:02 HDL Cholesterol 43 mg/dL (40-59) 12/15/18 11:02 Cholesterol/HDL Ratio 3.90 % 12/15/18 11:02 TSH 4.660 mlU/mL (0.270-4.200) H 12/15/18: Free T4 0.83 ng/dL (0.76-1.46) 12/15/18:26
[2018-12-16] MEDS: ASPIRIN PO SCH (14:32)
[2018-12-16] MEDS: NORVASC PO SCH (14:32)
--- NOTE | 2018-12-16 21:18 | Treadmill Report ---
INDICATION: Chest pain. ORDERING PHYSICIAN: Marquise Julio MD FINDINGS: There is no scintigraphic evidence of myocardial ischemia. There is evidence of a small fixed mid inferior wall defect. The left ventricular function is normal and measured at 57%. There is normal wall motion and wall thickening noted on gated imaging. CONCLUSION: 1. No scintigraphic evidence of myocardial ischemia. 2. Small fixed mid inferior wall defect likely due to diaphragmatic attenuation. 3. Normal left ventricular size and systolic function with an ejection fraction measured at 57%. 4. This is a low risk myocardial perfusion scan associated with 1-year cardiovascular mortality of less than 1%. JOB# [id number] VIPUL/ANTONIA
[2018-12-17] MEDS ORDERED: NORVASC PO ONE (00:59)
[2018-12-17] MEDS: ASPIRIN PO SCH (10:46)
[2018-12-17] MEDS: NORVASC PO SCH (10:46)
--- NOTE | 2018-12-17 11:31 | Progress Note ---
Addendum entered and electronically signed by MARISA BALL MD 12/17/18 13:48: Patient was admitted with neurological symptoms of slurred speech and lower extr emity weakness resulting in a fall. No cardiac complaints, we'll sign off. Original Note: Assessment and Plan Slurred speech and weakness resulting in multiple falls - reason for admission Atypical chest pain MPI this admission showing no ischemia, LVEF 57% Normal CXR Negative troponin ECG showing LVH, no ischemic findings Systemic Hypertension Conservative cardiac management. Subjective Date of service: 12/17/18 Interval history: Patient has no cardiac complaints. Objective Vital Signs Temp Pulse Pulse Resp BP BP Pulse Ox 12/17/18 10:46 89 133/96 12/17/18 09:43 96 12/17/18 08:03 98.6 F 18 146/113 12/17/18 06:37 92 H 121/88 12/17/18 04:39 98.3 F 87 18 182/108 94 12/17/18 01:17 92 H 176/120 12/17/18 00:25 98.6 F 99 H 18 176/120 97 12/16/18 21:40 111 H 18 95 12/16/18 21:00 99 H 12/16/18 20:45 99.0 F 111 H 18 147/101 94 12/16/18 17:54 98.7 F 117 H 18 140/95 97 12/16/18 16:02 127/79 12/16/18 16:01 100 H 127/79 96 12/16/18 14:38 159/114 12/16/18 14:24 98.0 F 73 16 159/114 96 12/16/18 13:00 71 - Physical Examination General: No Apparent Distress HEENT: Positive: PERRL Cardiac: Positive: Reg Rate and Rhythm
--- NOTE | 2018-12-17 12:00 | Discharge Summary ---
Providers - Providers Date of Admission: 12/15/18 15:33 Date of discharge: 12/17/18 Attending physician: JERROD MYERS 12/15/18 Consult to Cardiac Rehabilitation [CONS] Routine Reason For Exam: Phase I Consult to Physician [CONS] Routine Comment: Consulting Provider: PRIYANK MAJANO Physician Instructions: Reason For Exam: cva 12/15/18 15:33 Consult to Cardiology [CONS] Routine Consulting Provider: MARISA BALL Reason For Exam: chest pain Occupational Therapy Evaluate and Treat [CONS] Routine Comment: Reason For Exam: Neuro deficits Physical Therapy Evaluation and Treat [CONS] Routine Comment: Reason For Exam: Neuro deficits 12/15/18 15:34 Speech Therapy Evaluation and Treat [CONS] Routine Reason For Exam: swallow eval Primary care physician: COLLINS STINSON Hospitalization Condition: Fair Hospital course: Patient is 63 YO Female with Anxiety, hypertension, hypothyroidism, Obesity presents to ED for evaluation.She presented with slurred speech and weakness resulting in multiple falls. She also complained of chest pain. She was evaluated in ED, Code stroke called. CT head was unremarkable. BP 201/127. She was given Asprin, admitted. Stress test was done next day was negative. MRI could not be done because of claustrophobia. She was evaluated by Neurology. Slurred speech resolved. Final diagnosis Hypertensive emergency, TIA and non cardiac chest pain. She was subsequently discharged home. Total time spent on discharge, 32 mins Disposition: [id number] HOME UNDER HOME HLTH - Discharge Diagnoses (1) TIA (transient ischemic attack) Status: Acute (2) Hypertensive urgency Status: Acute (3) Dehydration Status: Inactive (4) Hyperlipidemia Status: Acute Core Measure Documentation - Palliative Care Palliative Care/ Comfort Measures: Not Applicable - Core Measures Any of the following diagnoses?: none Exam - Constitutional Vitals: Temp Pulse Resp BP Pulse Ox 98.6 F 89 18 133/96 96 12/17/18 08:03 12/17/18 10:46 12/17/18 08:03 12/17/18 10:46 12/17/18 09:43 Plan Activity: advance as tolerated Diet: low fat, low cholesterol, low salt Additional Instructions: 1.Follow up with Dr. Collins Stinson in 1 week. 2.Follow up with Psychiatrist in 1 week for anxiety. Follow up with: COLLINS STINSON MD [Primary Care Provider] - 3-5 Days Prescriptions: amLODIPine [Norvasc] 10 mg PO QDAY #30 tablet Aspirin [Aspirin EC] 325 mg PO DAILY #30 tablet. AtorvaSTATin [Lipitor] 40 mg PO QHS #30 tablet
[2018-12-17 16:37] VITALS: BP 119/83
== END 2018-12-17 18:57 | disposition home health service (06) | DRG 69 ==
LOC: ED 08:17 → 4A 15:33
PROVIDERS: ADMIT Internal Medicine; ATTEND Internal Medicine
DX: G45.9 Transient cerebral ischemic attack, unspecified (principal); I16.0 Hypertensive urgency; F41.9 Anxiety disorder, unspecified; E66.9 Obesity, unspecified; R07.89 Other chest pain; E86.0 Dehydration; E03.9 Hypothyroidism, unspecified; M19.90 Unspecified osteoarthritis, unspecified site; Z82.49 Family history of ischemic heart disease and other diseases of the circulatory system; Z88.0 Allergy status to penicillin; Z91.041 Radiographic dye allergy status
CPT/HCPCS: 36415; 70450; 71045; 78452; 80053; 80061; 83880; 84439; 84443; 84484; 85025; 85610; 85730; 93005; 93010; 93017; 93306; 93880; G0378; A9270-GY; A9502; J0360; J2060; J2270; J2785

== ENCOUNTER 2019-01-06 10:49 | Emergency (ER) | payer MEDICARE ==
[2019-01-06] MEDS ORDERED: IBUPROFEN PO ONE (11:06)
[2019-01-06] MEDS ORDERED: CARAFATE PO ONE (11:06)
[2019-01-06] MEDS ORDERED: PEPCID PO ONE (11:06)
--- NOTE | 2019-01-06 11:07 | Emergency Department Report ---
ED General Adult HPI - General Chief complaint: Chest Pain Stated complaint: CHEST PAIN Time Seen by Provider: 01/06/19 10:58 Source: patient, EMS (ems notes not available at time of chart dictation), RN notes reviewed, old records reviewed Mode of arrival: Stretcher Limitations: No Limitations - History of Present Illness Initial comments: This is a 63-year-old female. The patient is not known to this provider previously. Past medical history includes anxiety, hypertension, obesity, hypothyroidism, transient ischemic attack The patient was admitted to this hospital last month for neurologic symptoms. She had a nuclear stress test which was essentially found to be unremarkable. In addition, she was comfortable we diagnosed with "noncardiac chest pain." She apparently complained of chest pain during her previous hospitalization 2. Cardiology evaluated her, he did not feel that she required further ischemic workup or risk stratification. She also had a negative CT scan of the brain. Today, the patient was reportedly in court, and complained of chest pain. The chest pain is left-sided, intermittent, aching in nature, does not radiate to the back, arms or neck, is not associated with vomiting, diaphoresis or shortness of breath, and moves to the right side of the chest. Patient taking aspirin on a daily basis. She denies leg pain, leg swelling, pleuritic pain, or exertional shortness of breath. Patient also complains of "tingling", intermittently, for days and weeks, and her bilateral upper extremities, intermittently, that her bilateral lower extremities. This appears to be intermittent, does not have exacerbating or relieving factors, and she denies focal extremity weakness, and denies bladder or bowel retention or incontinence. The patient makes no complaint of homicidality or suicidality. -: Gradual, days(s) Location: chest Radiation: other (radiates left sided chest to the right side of the chest) Quality: aching Consistency: intermittent Improves with: none Worsens with: none - Related Data Home Medications Medication Instructions Recorded Confirmed Last Taken Aspirin/Acetaminophen/Caffeine 12/17/18 12/16/18 [Excedrin Migraine Caplet] Aspirin/Acetaminophen/Caffeine tab PO PRN 12/17/18 12/16/18 [Excedrin Migraine Caplet] Excedrin Migraine Caplet 1 caplet PO DAILY PRN 12/17/18 12/17/18 12/16/18 Previous Rx's Medication Instructions Recorded Last Taken Type Aspirin [Aspirin EC] 325 mg PO DAILY #30 tablet. 12/17/18 Unknown Rx AtorvaSTATin [Lipitor] 40 mg PO QHS #30 tablet 12/17/18 Unknown Rx amLODIPine [Norvasc] 10 mg PO QDAY #30 tablet 12/17/18 Unknown Rx Allergies Allergy/AdvReac Type Severity Reaction Status Date / Time iodine Allergy Unknown Verified 09/26/15 21:59 Penicillins AdvReac Unknown Verified 01/12/15 04:48 ED Review of Systems ROS: Stated complaint: CHEST PAIN Other details as noted in HPI Constitutional: denies: fever, malaise ENT: denies: epistaxis Respiratory: denies: cough, shortness of breath Cardiovascular: chest pain Gastrointestinal: denies: vomiting Musculoskeletal: arthralgia, myalgia Skin: denies: lesions Neurological: paresthesias Psychiatric: anxiety ED Past Medical Hx - Past Medical History Hx Hypertension: Yes (pt denies) Hx Congestive Heart Failure: No Hx Diabetes: No Hx Arthritis: Yes Hx Psychiatric Treatment: Yes (ANXIETY) Hx Asthma: No Hx COPD: No Hx HIV: No Additional medical history: HYPOTHYROIDISM - Surgical History Additional Surgical History: hernia repair - Social History Smoking Status: Never Smoker - Medications Home Medications: Home Medications Medication Instructions Recorded Confirmed Last Taken Type Aspirin [Aspirin EC] 325 mg PO DAILY #30 tablet. 12/17/18 Unknown Rx Aspirin/Acetaminophen/Caffeine 12/17/18 12/16/18 History [Excedrin Migraine Caplet] Aspirin/Acetaminophen/Caffeine tab PO PRN 12/17/18 12/16/18 History [Excedrin Migraine Caplet] AtorvaSTATin [Lipitor] 40 mg PO QHS #30 tablet 12/17/18 Unknown Rx Excedrin Migraine Caplet 1 caplet PO DAILY PRN 12/17/18 12/17/18 12/16/18 History amLODIPine [Norvasc] 10 mg PO QDAY #30 tablet 12/17/18 Unknown Rx ED Physical Exam - General Limitations: No Limitations General appearance: alert, in no apparent distress - Head Head exam: Present: atraumatic, normocephalic - Eye Eye exam: Present: normal appearance, PERRL, EOMI, other (visual acuity intact to finger counting, color perception, reading at a close distance). Absent: nystagmus - ENT ENT exam: Present: normal exam, normal orophraynx, mucous membranes moist, normal external ear exam - Neck Neck exam: Present: normal inspection, full ROM. Absent: tenderness, meningismus - Respiratory Respiratory exam: Present: normal lung sounds bilaterally. Absent: respiratory distress - Cardiovascular Cardiovascular Exam: Present: regular rate, normal rhythm, normal heart sounds. Absent: bradycardia, tachycardia, irregular rhythm, systolic murmur, diastolic murmur, rubs, gallop - GI/Abdominal GI/Abdominal exam: Present: soft. Absent: distended, tenderness, guarding, rebound, rigid, pulsatile mass - Extremities Exam Extremities exam: Present: normal inspection, full ROM, other (2+ pulses noted in the bilateral upper, lower extremities. Compartments soft. No long bony tenderness. The pelvis is stable.). Absent: tenderness, pedal edema, joint swelling, calf tenderness (there is no palpable cord. There is negative Homans sign.) - Back Exam Back exam: Present: normal inspection, full ROM. Absent: tenderness, CVA tenderness (R), paraspinal tenderness, vertebral tenderness - Neurological Exam Neurological exam: Present: alert, oriented X3, CN II-XII intact, other (Extraocular movements intact. Tongue midline. No facial droop. Facial sensation intact to light touch in the V1, V2, V3 distribution bilaterally. 5 and 5 strength in 4 extremities.. Sensation is intact to light touch in 4 extremities.). Absent: motor sensory deficit - Psychiatric Psychiatric exam: Present: anxious - Skin Skin exam: Present: warm, dry, intact, normal color. Absent: rash ED Course Vital Signs 01/06/19 11:09 Temperature 98.0 F Pulse Rate 97 H Respiratory 17 Rate Blood Pressure 154/111 O2 Sat by Pulse 96 Oximetry - Reevaluation(s) Reevaluation #1: 01/06/19 11:44 Patient low risk by well's criteria, low risk by WALI score, low risk by heart score Reevaluation #2: 01/06/19 12:13 Reassessed. Patient in no distress. Patient noted to be talking, texing and playing on her cellular phone during the entire time that she is in her stretcher. She appears to be in no acute distress. Patient medically suitable for discharge at this point in time. ED Medical Decision Making - Lab Data Result diagrams: 01/06/19 11:25 01/06/19 11:25 Vital Signs 01/06/19 11:09 Temperature 98.0 F Pulse Rate 97 H Respiratory 17 Rate Blood Pressure 154/111 O2 Sat by Pulse 96 Oximetry - EKG Data -: EKG Interpreted by Me EKG shows normal: sinus rhythm Rate: normal - EKG Data When compared to previous EKG there are: no significant change Interpretation: no acute changes 01/06/19 11:40 Sinus rhythm, 95 bpm, left axis deviation, left ventricular hypertrophy, left anterior fascicular block, abnormal EKG, not consistent with ST elevation myocardial infarction, appears unchanged from prior EKG from 12/15/2018 - Radiology Data Radiology results: report reviewed, image reviewed X-ray of the chest is negative for acute disease - Medical Decision Making Differential diagnosis, including but not limited to:: GERD, gastritis, hiatal hernia, acute coronary syndrome, pneumonia, anxiety, conversion disorder, peripheral neuropathy Assessment and plan: 63-year-old female who recently had an extensive cardiac risk stratification within the past month, with 3 days of chest discomfort, and nonspecific nonfocal neurologic symptoms. Patient also seen and evaluated by neurology last month, who felt that symptoms were most likely coming from anxiety. Given her bilateral intermittent distribution of "tingling", central event is quite unlikely. She has no focal extremity weakness, and she has no bladder or bowel retention or incontinence, therefore her history and physical are not suggestive of epidural compression syndrome. She has downgoing plantar reflexes bilaterally. Chest pain very unlikely to be coming from acute coronary syndrome, symptoms present reportedly for over 3 days, therefore, as per the [employer] clinical policy, myocardial infarction may be excluded with 1 set of cardiac enzymes as symptoms have been present for greater than 8 hours. Pulmonary embolus is quite unlikely, I find the patient to be low risk by well's criteria, she is not tachycardic and she is not hypoxic. Critical care attestation.: If time is entered above; I have spent that time in minutes in the direct care of this critically ill patient, excluding procedure time. ED Disposition Clinical Impression: Chest pain, Paresthesias Disposition: -01 TO HOME OR SELFCARE Is pt being admited?: No Does the pt Need Aspirin: No Condition: Stable Instructions: Chest Pain (ED) Additional Instructions: Continue outpatient medications. Follow-up with your primary care doctor or tile finisher for chest pain within the next 3-5 days. Follow up with her primary care doctor or neurology specialist within the next 2 weeks for reported tingling in the upper, lower extremities. Follow-up with the primary care doctor or psychiatrist within the next month for your anxiety. Return to the emergency room right away with you, worsens or difference Referrals: RONALDO LEROY MD [Staff Physician] - 3-5 Days TAMI STINSON MD [Primary Care Provider] - 7-10 days CHYNA CASTRO MD [Referring] - 7-10 days HÉCTOR GARCIA MD [Staff Physician] - 7-10 days
[2019-01-06 11:41] LABS: Basophils # (Auto) 0.1 K/mm3 (0.0-0.1); Basophils % (Auto) 0.8 % (0.0-1.8); Eosinophils # (Auto) 0.2 K/mm3 (0.0-0.4); Eosinophils % (Auto) 2.8 % (0.0-4.3); Hematocrit 37.9 % (30.3-42.9); Hemoglobin 12.9 gm/dl (10.1-14.3); Lymphocytes # (Auto) 1.8 K/mm3 (1.2-5.4); Lymphocytes % (Auto) 27.3 % (13.4-35.0); Mean Corpuscular HGB Conc 34 % (30-34); Mean Corpuscular Volume 86 fl (79-97); Monocytes # (Auto) 0.4 K/mm3 (0.0-0.8); Monocytes % (Auto) 5.7 % (0.0-7.3); Platelet Count 396 K/mm3 (140-440); Red Blood Count 4.43 M/mm3 (3.65-5.03); Red Cell Distribution Width 14.2 % (13.2-15.2)
[2019-01-06 11:57] LABS: BUN/Creatinine Ratio 28; Blood Urea Nitrogen 17 mg/dL (7-17); Calcium 9.4 mg/dL (8.4-10.2); Hemolysis Index 7
[2019-01-06 12:09] LABS: INR 0.94 (0.87-1.13)
--- NOTE | 2019-01-06 12:09 | XRay Report ---
CHEST TWO VIEWS: 01/06/19 10:49:00 CLINICAL: Chest pain. COMPARISON: 12/15/18 FINDINGS: The heart is normal size with a left ventricular contour.Marked tortuosity of the thoracic aorta. The lungs are normally expanded and clear.Degenerative changes in the spine with moderate spondylosis. IMPRESSION: Hypertensive changes in the heart and aorta.No CHF or pneumonia.
[2019-01-06 12:10] LABS: Partial Thromboplastin Time 25.4 Sec. (24.2-36.6)
[2019-01-06 12:32] VITALS: BP 119/82
== END 2019-01-06 13:05 | disposition home or self-care (01) ==
LOC: ED 10:49
DX: R07.9 Chest pain, unspecified (principal); R20.2 Paresthesia of skin; M19.90 Unspecified osteoarthritis, unspecified site; E03.9 Hypothyroidism, unspecified
CPT/HCPCS: 36415; 71046; 80048; 84484; 85025; 85610; 85730; 93005; 93010